=== PATIENT | female | born 2000 | race Caucasian/White ===

== ENCOUNTER 2022-02-05 19:53 | Emergency (ER) | payer OTHER ==
[~2022-02-05 19:53] MED LIST: IBUPROFEN800 MG PO
[2022-02-05 23:42] LABS: BASOPHIL 0.4 % (0-2); EOSINOPHIL 2.4 % (0-5); HCT 42.8 % (37.0-47.0); HGB 14.2 g/dl (12.5-16.0); LYMPHOCYTE 27.7 % (15-48); MCH 28.9 pg (25.0-31.0); MCHC 33.2 g/dL (32.0-36.0); MCV 87.2 fL (78.0-100.0); MONOCYTE 8.8 % (0-12); MPV 9.2 fL (6.0-9.5); NEUTROPHIL 60.3 % (41-80); NRBC 0; PLT 306 K/uL (150-400); RBC 4.91 M/uL (4.20-5.40); RDW 13.1 % (11.5-14.0)
[2022-02-05 23:58] LABS: ALBUMIN 3.8 g/dL (3.4-5.0); BILIRUBIN - TOTAL 0.3 mg/dL (0.2-1.0); BUN/CREAT RATIO (CALC) 14.5 RATIO; CREATININE 0.69 mg/dL (0.51-0.95); GLOBULIN (CALCULATION) 4.1 g/dL; INR 1.03 (0.9-1.2); POTASSIUM 3.4 mmol/L (3.5-5.1); PROTHROMBIN TIME 13.2 SECONDS (11.9-13.9); PTT 30.3 SECONDS (24.9-34.6); TOTAL PROTEIN 7.9 g/dL (6.4-8.2)
[2022-02-06] MEDS ORDERED: CARAFATE1 GM PO (00:29)
[2022-02-06] MEDS ORDERED: OMEPRAZOLE40 MG PO (00:29)
[2022-02-06 00:46] LABS: BILIRUBIN NEGATIVE (NEGATIVE); BLOOD NEGATIVE Ery/uL (NEGATIVE); CLARITY CLEAR (CLEAR); COLOR YELLOW (YELLOW); GLUCOSE (U) NORMAL (NORMAL); LEUKOCYTES NEGATIVE Leu/uL (NEGATIVE); NITRITE NEGATIVE (NEGATIVE); PROTEIN NEGATIVE (NEGATIVE)
== END 2022-02-06 01:10 | disposition home or self-care (01) ==
LOC: FER 19:53
PROVIDERS: Internal Medicine
DX: K29.70 Gastritis, unspecified, without bleeding (principal)
CPT/HCPCS: 36415; 80053; 81003; 83690; 84145; 85025; 85610; 85730; C9113; J2270; J2405; J7030

== ENCOUNTER 2022-02-27 18:59 | Emergency (ER) | payer OTHER ==
[~2022-02-27 18:59] MED LIST changes: +CARAFATE1 GM PO; +OMEPRAZOLE40 MG PO
[2022-02-27 20:21] LABS: BASOPHIL 0.3 % (0-2); EOSINOPHIL 0.2 % (0-5); HCT 39.2 % (37.0-47.0); HGB 12.8 g/dl (12.5-16.0); LYMPHOCYTE 21.1 % (15-48); MCH 28.3 pg (25.0-31.0); MCHC 32.7 g/dL (32.0-36.0); MCV 86.7 fL (78.0-100.0); MONOCYTE 7.4 % (0-12); MPV 9.1 fL (6.0-9.5); NEUTROPHIL 70.7 % (41-80); NRBC 0; PLT 319 K/uL (150-400); RBC 4.52 M/uL (4.20-5.40); RDW 13.4 % (11.5-14.0); WBC 9.7 K/uL (4.0-10.5)
[2022-02-27 20:30] LABS: AMPHETAMINES NEGATIVE (NEGATIVE); BARBITURATES NEGATIVE (NEGATIVE); ECSTASY (MDMA) NEGATIVE (NEGATIVE); MARIJUANA (THC) NEGATIVE (NEGATIVE); METHADONE NEGATIVE (NEGATIVE); OPIATES NEGATIVE (NEGATIVE); OXYCODONE NEGATIVE (NEGATIVE)
[2022-02-27 20:57] LABS: ALBUMIN 3.9 g/dL (3.4-5.0); ALKALINE PHOSHATASE 82 U/L (46-116); ALT 22 U/L (14-59); AST 13 U/L (15-37); BILIRUBIN - TOTAL 0.2 mg/dL (0.2-1.0); BUN 10 mg/dL (7-18); BUN/CREAT RATIO (CALC) 14.3 RATIO; CHLORIDE 104 mmol/L (98-107); CO2 (BICARBONATE) 26 mmol/L (21-32); GLOBULIN (CALCULATION) 3.7 g/dL; GLUCOSE 108 mg/dL (74-106); POTASSIUM 4.3 mmol/L (3.5-5.1); TOTAL PROTEIN 7.6 g/dL (6.4-8.2)
[2022-02-27 20:59] LABS: CORONAVIRUS 2019 SARS-COV-2 NEGATIVE (NEGATIVE); INFLUENZA A NAA NEGATIVE (NEGATIVE)
== END 2022-02-28 02:27 ==
LOC: FER 18:59
PROVIDERS: Physician Assistant
DX: R45.850 Homicidal ideations (principal); F32.A Depression, unspecified; Z20.822 Contact with and (suspected) exposure to COVID-19
CPT/HCPCS: 36415; 80053; 80305; 85025; 99285; G0480; U0002

== ENCOUNTER → 2022-03-24 | Day surgery (SDC) | payer OTHER ==
[~2022-03-24] VITALS: Ht 170.2 cm; Wt 104.3 kg
[~2022-03-24] MED LIST changes: +ATARAX25 MG PO; +DULOXETINE HCL30 MG PO; +GEODON40 MG PO
[2022-03-24 07:05] LABS: HCG (URINE) SCREEN NEGATIVE (NEGATIVE)
== END | disposition home or self-care (01) ==
LOC: FAS 03-10 07:00
PROVIDERS: Anesthesiology
DX: K29.50 Unspecified chronic gastritis without bleeding (principal); K22.4 Dyskinesia of esophagus; E78.00 Pure hypercholesterolemia, unspecified; F17.290 Nicotine dependence, other tobacco product, uncomplicated; Z79.899 Other long term (current) drug therapy
CPT/HCPCS: 84703; J1610; J2250; J2704; J7120